=== PATIENT | female | born 1970 | race Caucasian/White ===

== ENCOUNTER 2018-08-18 16:35 | Outpatient (CLI) | payer OTHER, SELFPAY ==
--- NOTE | 2018-08-18 16:30 | DI.RAD_ITS ---
SYMPTOMS/DIAGNOSIS: LOW BACK PAIN, M54.5, BACK SURGERY 2015 LUMBAR SPINE: AP, lateral and bilateral oblique views. There is straightening of the normal lumbar lordosis. No spondylolysis or spondylolisthesis is seen. At L 3 - 4 there is a vacuum disc. There are endplate osteophytes and endplate sclerosis. At L 5 - S 1 there is a vacuum disc present and mild disc space narrowing. No acute fractures or subluxations are seen. There are surgical clips in the right upper quadrant of the abdomen. An intrauterine device is seen in the pelvis. IMPRESSION: Mild degenerative changes in the lumbar spine.
== END 2018-08-18 16:55 ==
PROVIDERS: PCP Physician Assistant Medical; Visit Provider Registered Nurse
DX: M54.5 Low back pain (principal); Z98.890 Other specified postprocedural states; M47.816 Spondylosis without myelopathy or radiculopathy, lumbar region
CPT/HCPCS: 72110

== ENCOUNTER 2018-08-20 12:41 | Emergency (ER) | payer OTHER, SELFPAY ==
[2018-08-20 12:46] VITALS: BP 138/88; PULSE 120; RESP 18; TEMP 36.7; O2SAT 100
[2018-08-20 12:50] VITALS: RESP 120
--- NOTE | 2018-08-20 12:53 | ED.GENADUL_ITS ---
Discharge Plan Disposition Patient Disposition: HOME Condition: Stable Discharge Details Chief Complaint: Nk/Back Pain Clinical Impression: Muscle spasm Primary Care Provider: Yarelis Guardado ED Provider: Beck Thompson Home Meds and New Rx's Prescriptions: New diazepam [Valium] 5 mg tablet 5 mg PO TID-QID PRN (Reason: muscle spasm) Qty: 20 RF: 0 No Action levothyroxine 300 mcg Tablet 300 mcg PO DAILY RF: 0 enalapril maleate 20 mg Tablet 20 mg PO DAILY RF: 0 pantoprazole [Protonix] 20 mg Tablet,Delayed Release (Dr/Ec) 20 mg PO DAILY RF: 0 bupropion HCl [Wellbutrin XL] 300 mg Tablet Extended Release 24 Hr 300 mg PO QAM RF: 0 duloxetine [Cymbalta] 60 mg Capsule,Delayed Release(Dr/Ec) 60 mg PO DAILY RF: 0 Discharge Instructions Instructions: Muscle Spasm (ED) Additional Instructions: You can take 1000mg tylenol and 600mg ibuprofen every 6 hours for pain as needed do not take the valium and flexeril within 3 hours of each other Follow up with your primary care provider within 1-2 weeks if you develop fevers, inability to urinate or severe worsening of pain return to the emergency department Stand Alone Forms: Physical Therapy Referral, Work Release Medical Decision Making 47 yo female who denies chronic medical problems comes in with muscle spasm. She has had a pain in the left lower back for a few days with no known trauma, had lumbar spine xrays taken on 08/18 which showed djd otherwise unremarkble. She has been taking prednisone prescribed by her pcp (50mg daily for 5 days) and also flexeril prn without significnat relief. She has pain in the left buttock/hip area. HAs full rom of the hip without erythema or warmth so doubt septic joint. Her pain seems to be musculoskeletal in nature. Has no midline pain, no saddle anesthesia, no urinary retention and denies ivdu or fevers so doubt sea or cauda equina. Will treat with nsaids and valium and reassess. pt feels mildly better, still no deficits on exam. Will prescribe the muscle relaxer and also Pt referral, return precautions given Differential Diagnosis muscle spasm, sciatica, strain, sprain HPI General Mode of arrival: ambulatory . Date/Time Provider Initiated Documentation: 08/20/18 12:42 . Limitations to Documentation: no limitations . Information obtained by: patient . History of Present Illness 47 year old F presents to the emergency department with the chief complaint of left buttock/low back pain, Patient reports no radiation. Patient started experiencing this day(s) (3) and it has been constant. No relieving factors improve symptom(s), No exacerbating factors reported . Patient notes no other symptoms.. Related Data Home Medications Medication Instructions Recorded Confirmed bupropion HCl [Wellbutrin XL] 300 mg PO QAM 08/20/18 08/20/18 diazepam [Valium] 5 mg PO TID-QID PRN #20 tab 08/20/18 duloxetine [Cymbalta] 60 mg PO DAILY 08/20/18 08/20/18 enalapril maleate 20 mg PO DAILY 08/20/18 08/20/18 levothyroxine 300 mcg PO DAILY 08/20/18 08/20/18 pantoprazole [Protonix] 20 mg PO DAILY 08/20/18 08/20/18 Previous Rx's Medication Instructions Recorded diazepam [Valium] 5 mg PO TID-QID PRN #20 tab 08/20/18 Allergies Allergy/AdvReac Type Severity Reaction Status Date / Time ondansetron [From Zofran] Allergy Severe Anaphylaxsi Unverified 08/20/18 12:51 s citalopram [From Celexa] Allergy Mild Other (See Unverified 08/20/18 12:51 Comment) Review of Systems Review of Systems All systems reviewed & are unremarkable except as noted in HPI and below Constitutional Denies chills, Denies fever(s) and Denies weakness ENT Denies change in voice Cardiovascular Denies chest pain and Denies dyspnea Respiratory Denies cough and Denies dyspnea Gastrointestinal Denies abdominal pain, Denies nausea and Denies vomiting Integumentary/Breasts Denies rash Neurologic Denies weakness Exam Const General: no acute distress Orientation: alert HENMT Head: normal to inspection Ears: external ears normal General nose exam: external nose normal Mouth: moist mucous membranes Eyes General: appearance normal, both eyes and all related structures Neck Neck: normal visual inspection Resp Effort & Inspection: normal respiratory effort and able to speak in complete sentences Cardio Rate: regular rate Skin General skin exam: no rashes or lesions noted Neuro General: alert and oriented x3 Extrem General: normal to inspection Psych Mental Status: mental status grossly normal
[2018-08-20] MEDS: Ketorolac 30 MG/ML VIAL IM (12:57)
[2018-08-20] MEDS: Diazepam 5 MG TAB PO (12:57)
== END 2018-08-20 13:42 | disposition home or self-care (01) ==
PROVIDERS: Emergency Provider Emergency Medicine; PCP Physician Assistant Medical
DX: M62.830 Muscle spasm of back (principal)
CPT/HCPCS: 96372; 99284; 99283; J1885

== ENCOUNTER 2018-08-26 13:56 | Outpatient (CLI) | payer OTHER, SELFPAY ==
--- NOTE | 2018-08-26 13:52 | DI.MRI_ITS ---
SYMPTOMS/DIAGNOSIS: LOW BACK PAIN, M54.5, RIGHT LEG NUMBNESS AND PAIN, S/P SURGERY IN 2015 FOR 2 HERNIATED DISCS MRI OF THE LUMBAR SPINE: Comparison is made with September,. T1, T2 and STIR sagittal and T1 and T2 axial as well as pre and post gadolinium fat-suppressed T1 axial and sagittal sequences were performed. The exam is somewhat limited by the patient's body habitus and motion. The T12-L1 and L1-2 discs appear normal. There is mild bulging of the L2-3 disc, unchanged from the previous exam. At L3-4, there is further loss of disc height and increased circumferential disc bulging when compared with the previous exam. The endplate osteophytes also appear to have increased. There is an area of abnormal density seen on the right side of the thecal sac, inferior to the L3-4 disc suspicious for an inferior disc extrusion. There is significant impression upon the thecal sac. There is mild to moderate neural foraminal narrowing. At L4-5, there is disc bulging eccentric toward the right causing severe right neural foraminal narrowing. There is also moderate left neural foraminal narrowing. There are also facet degenerative changes combining with the disc bulging to produce mild central canal stenosis. At L5- S1, there is evidence of previous surgery. A small left laminectomy defect is seen. There is mild bulging of the disc. There are mild facet degenerative changes. There is left neural foraminal narrowing. The conus medullaris appears intact. The marrow signal is unremarkable other than degenerative endplate signal changes. The aorta is normal in diameter. A right renal cyst is seen. IMPRESSION: 1. Right-sided inferior extrusion of disc material inferior to the L3-4 disc. 2. Right-sided disc bulging and facet degenerative changes at L4-5 cause severe right neural foraminal narrowing, as well as mild central canal stenosis.
[2018-08-26] MEDS: Gadoterate meglumine 20 ML VIAL IVP (14:42)
== END 2018-08-26 14:16 ==
PROVIDERS: PCP Physician Assistant Medical; Visit Provider Registered Nurse
DX: M54.5 Low back pain (principal); M79.604 Pain in right leg; R20.0 Anesthesia of skin; M51.17 Intervertebral disc disorders with radiculopathy, lumbosacral region
CPT/HCPCS: 72158

== ENCOUNTER 2018-11-26 01:13 | Outpatient (CLI) | payer OTHER, SELFPAY ==
--- NOTE | 2018-11-26 16:00 | NS.NUTBLAN_ITS ---
ASSESSMENT: Irene Knowles presents for first nutrition consult in preparation for Bariatric surgery. Irene has omelet, turkey sausage and a scoop of home fries for breakfast; snacks at lunch on cereal and skim milk, animal crackers, addie crackers and peanut butter, or ice cream, and a regular supper of meat, potato, salad. She has soda 2x/month. She dislikes vegetables and likes limited number of fruit. 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 She reports she has just gotten her C-Pap machine. HEIGHT: 65.5 inches WEIGHT: 297.7 BMI: 50.3 INTERVENTION: Discussed options for a less processed lunch/snack but she does not have many options available to her. Discussed documenting her food on the food journal. PLAN: She will return in 1 month for follow up consult to monitor weight, BMI, nutrition and physical activity.
== END 2018-11-26 01:33 ==
PROVIDERS: PCP Physician Assistant Medical; Visit Provider Dietitian, Registered
DX: E66.9 Obesity, unspecified (principal); Z01.818 Encounter for other preprocedural examination; Z71.3 Dietary counseling and surveillance
CPT/HCPCS: 97802

== ENCOUNTER 2018-12-18 02:52 | Outpatient (CLI) | payer OTHER, SELFPAY ==
--- NOTE | 2018-12-18 15:39 | NS.NUTBLAN_ITS ---
DESCRIPTION: Irene Knowles presents for consult for her second nutrition visit for bariatric surgery preparation. Irene has been successful at being in the pool 20 minutes 3-4 times a week. She has increased the variety of fruits and tried to eat more vegetables. She has been eating salads. She has not been skipping meals. SHe has cut out potatoes at breakfast. She has been avoiding sweets. Weight today: 295 Height: 65.5 BMI: 48.4 INTERVENTION: Discussed concerns about bariatric surgery. She believes she can continue the changes she has made. In addition, discussed 'how' she eats. PLAN: Irene will continue in the pool and attempt to increase her time there She will slow down how fast she eats; chew more Document her food for at least 1 week
== END 2018-12-18 03:12 ==
PROVIDERS: PCP Physician Assistant Medical; Visit Provider Dietitian, Registered
DX: E66.01 Morbid (severe) obesity due to excess calories (principal); Z68.45 Body mass index [BMI] 70 or greater, adult; Z01.818 Encounter for other preprocedural examination; Z71.3 Dietary counseling and surveillance
CPT/HCPCS: 97803

== ENCOUNTER 2018-12-18 06:57 | Outpatient (RCR) | payer OTHER, SELFPAY ==
[2018-12-18 07:56] LABS: Abs Immature Grans 0.01 k/cumm (0.0-0.09); Absolute Basophil Count 0.03 k/cumm (0.0-0.2); Absolute Eosinophil Count 0.12 k/cumm (0.0-0.7); Absolute Lymphocyte Count 1.02 k/cumm (1.2-3.4); Absolute Monocyte Count 0.37 k/cumm (0.11-0.7); Basophils % 0.5; Eosinophils % 2.1; HCT 40.2 % (36.0-46.0); HGB 12.5 g/dL (12.0-15.5); Immature Grans % 0.2; Lymphocytes % 17.4; Mean Corp. HGB Concentration 31.1 g/dL (32.0-36.0); Mean Corpuscular Hemoglobin 28.4 pg (27.0-33.0); Mean Corpuscular Volume 91.4 fL (80-95); Mean Platelet Volume 11.7 fL (8.0-11.0); Monocytes % 6.3; Neutrophils % 73.5; Platelet Count 263 x1000/uL (130-400); RBC Distribution Width 14.2 % (11.7-14.6); White Blood Cell Count 5.85 k/cumm (4.4-10.8)
[2018-12-18 08:15] LABS: Hemoglobin A1C 6.1 % (4.5-6.2)
[2018-12-18 08:24] LABS: ALT 27 U/L (12-78); AST 12 U/L (15-37); Albumin 3.4 g/dL (3.4-5.0); Alkaline Phosphatase 97 U/L (46-116); Anion Gap 8.8 mmol/L (3-11); BUN 13 mg/dL (7-18); Bilirubin, Total 0.4 mg/dL (0.2-1.0); CO2 29.2 mmol/L (21.0-32.0); CREATININE 0.72 mg/dL (0.55-1.02); Calcium 8.3 mg/dL (8.5-10.1); Calculated LDL 139 mg/dL; Chloride 104 mmol/L (98-107); Cholesterol 205 mg/dL (50-200); Glucose 116 mg/dL (70-100); HDL Cholesterol 42 mg/dL (40-60); Potassium 3.8 mmol/L (3.5-5.1); Sodium 142 mmol/L (136-145); Total Protein 7.2 g/dL (6.4-8.2); Triglyceride 120 mg/dL (30-150)
== END 2018-12-30 23:59 | disposition home or self-care (01) ==
LOC: INF 06:57
PROVIDERS: PCP Physician Assistant Medical; Visit Provider Physician Assistant Medical
DX: R73.9 Hyperglycemia, unspecified (principal); I10 Essential (primary) hypertension
CPT/HCPCS: 36415; 80053; 80061; 83721; 83036; 84443; 85025

== ENCOUNTER 2019-01-22 13:12 | Outpatient (CLI) | payer OTHER, SELFPAY ==
--- NOTE | 2019-01-22 15:50 | NS.NUTBLAN_ITS ---
DESCRIPTION: Irene presents for nutrition consult for her 3rd nutrition visit in preparation for bariatric surgery. She reports attempting to slow down her eating by putting her fork down between bites and savoring her bites. Also focused on not drinking beverages with her meal. She has increased her fruit, decreased sweets, cereal and portions. She was on vacation for 2 weeks, however, and ate more than she normally does. Irene was physically active for the 2 weeks on vacation, walking and swimming at least 1 hour daily, hwoever since returning she has a back problem and that is limiting her current physical activity. Weight today: 297.8 Height: 65.5 inches BMI 49.6 INTERVENTION: Discussed strategies to increase mindful eating practices by slowing down her food, chewing food more thoroughly, no distracted eating. Discussed barrier to exercise and she feels confident she knows what to do to prevent triggering back issues. She is excited about her surgery and is making good efforts to prepare. MONITORING: Will f/u as she needs.
== END 2019-01-22 13:32 ==
PROVIDERS: PCP Physician Assistant Medical; Visit Provider Dietitian, Registered
DX: E66.2 Morbid (severe) obesity with alveolar hypoventilation (principal); Z68.42 Body mass index [BMI] 45.0-49.9, adult; Z71.3 Dietary counseling and surveillance
CPT/HCPCS: G0270

== ENCOUNTER 2019-01-25 01:15 | Outpatient (CLI) | payer OTHER, SELFPAY ==
--- NOTE | 2019-01-25 15:30 | DI.MAMMO_ITS ---
SYMPTOM/DIAGNOSIS: SCREENING Z12.31 BILATERAL SCREENING MAMMOGRAM: Mammograms were interpreted according to the usual protocol including computer analysis with CAD system, tomosynthesis and C view imaging. Comparison is made with 2017. The breasts are composed of fatty density tissue, breast density category A. No suspicious masses or suspicious microcalcifications are seen. There has been no significant change. IMPRESSION: Category 1, negative mammogram. Yearly screening mammography is recommended. Breast density category A. SA ASSESSMENT OF FINDINGS: Negative. Category 1. Patient will receive a letter notifying them of these results. BI-RAD category A. The breasts are almost entirely fatty.
== END 2019-01-25 01:35 ==
PROVIDERS: PCP Physician Assistant Medical; Visit Provider Physician Assistant Medical
DX: Z12.31 Encounter for screening mammogram for malignant neoplasm of breast (principal)
CPT/HCPCS: 77063; 77067

== ENCOUNTER 2019-03-25 12:42 | Outpatient (RCR) | payer OTHER, SELFPAY ==
[2019-03-25 14:30] LABS: HCT 38.5 % (36.0-46.0); HGB 12.4 g/dL (12.0-15.5)
[2019-03-25 14:45] LABS: Hemoglobin A1C 6.2 % (4.5-6.2)
[2019-03-25 14:54] LABS: Iron 32 ug/dL (50-175); Total Iron Binding Capacity 352 ug/dL (250-450); Transferrin Sat 9 % (15-50)
[2019-03-25 15:26] LABS: ALT 36 U/L (14-59); AST 17 U/L (15-37); Albumin 3.4 g/dL (3.4-5.0); Alkaline Phosphatase 85 U/L (46-116); Anion Gap 8.7 mmol/L (3-11); BUN 20 mg/dL (7-18); Bilirubin, Total 0.3 mg/dL (0.2-1.0); CO2 28.3 mmol/L (21.0-32.0); CREATININE 0.89 mg/dL (0.55-1.02); Calcium 8.8 mg/dL (8.5-10.1); Calculated LDL 86 mg/dL; Chloride 105 mmol/L (98-107); Cholesterol 169 mg/dL (50-200); Ferritin 34 ng/mL (8-388); Glucose 111 mg/dL (70-100); HDL Cholesterol 34 mg/dL (40-60); Magnesium 1.9 mg/dL (1.8-2.4); Potassium 3.4 mmol/L (3.5-5.1); Sodium 142 mmol/L (136-145); TSH 0.33 uIU/mL (0.36-3.74); Triglyceride 247 mg/dL (30-150); Vitamin B12 923 pg/mL (193-986)
[2019-03-25 15:27] LABS: Folate > 20.0 ng/mL (8.6-20.0)
[2019-03-25 15:31] LABS: Vitamin D 25 Total 44.7 ng/ml (30-100)
[2019-03-29 14:00] LABS: Thiamine (Vitamin B1), WB 288 nmol/L (70-180)
== END 2019-04-01 23:59 | disposition home or self-care (01) ==
LOC: INF 12:42
PROVIDERS: PCP Physician Assistant Medical; Visit Provider Surgery
DX: E66.01 Morbid (severe) obesity due to excess calories (principal)
CPT/HCPCS: 36415; 80053; 80061; 82306; 82607; 82728; 82746; 83036; 83540; 83550; 83735; 84425; 84443; 85014; 85018

== ENCOUNTER 2019-08-20 07:26 | Outpatient (RCR) | payer OTHER, SELFPAY ==
[2019-08-20 11:32] LABS: Iron 72 ug/dL (50-170)
[2019-08-20 12:00] LABS: ALT 41 U/L (14-59); AST 23 U/L (15-37); Albumin 3.5 g/dL (3.4-5.0); Alkaline Phosphatase 142 U/L (46-116); Anion Gap 7.3 mmol/L (3-11); BUN 10 mg/dL (7-18); Bilirubin, Total 0.5 mg/dL (0.2-1.0); CO2 29.7 mmol/L (21.0-32.0); CREATININE 0.69 mg/dL (0.55-1.02); Calcium 8.5 mg/dL (8.5-10.1); Calculated LDL 100 mg/dL (<100); Chloride 104 mmol/L (98-107); Cholesterol 153 mg/dL (<200); Ferritin 53 ng/mL (8-252); Folate 11.1 ng/mL (8.6-20.0); GGT 30 U/L (5-55); Glucose 95 mg/dL (74-106); HDL Cholesterol 35 mg/dL (40-60); Potassium 3.6 mmol/L (3.5-5.1); Sodium 141 mmol/L (136-145); TSH 0.02 uIU/mL (0.36-3.74); Total Protein 6.2 g/dL (6.4-8.2); Triglyceride 91 mg/dL (<150); Vitamin B12 1148 pg/mL (193-986)
[2019-08-20 12:09] LABS: Bilirubin, Direct 0.12 mg/dL (0.00-0.20); Uric Acid 4.9 mg/dL (2.6-6.0)
[2019-08-23 10:15] LABS: Prealbumin 14 mg/dL (20-40)
[2019-08-23 12:21] LABS: Parathyroid Hormone,Intact 48 pg/mL (19-88)
[2019-08-23 13:34] LABS: Vitamin D 25 Total 48.8 ng/ml (30-100)
[2019-08-23 23:47] LABS: Free Retinol (Vitamin A) 25.2 mcg/dL (32.5-78.0)
[2019-08-24 12:28] LABS: Methylmalonic Acid 0.14 nmol/mL (<=0.40)
== END 2019-08-31 23:59 | disposition home or self-care (01) ==
LOC: INF 07:26
PROVIDERS: PCP Physician Assistant Medical; Visit Provider Nurse Practitioner Family
DX: Z98.84 Bariatric surgery status (principal)
CPT/HCPCS: 36415; 80053; 80061; 80076; 80186; 82306; 82607; 82728; 82746; 82977; 83540; 83970; 84134; 84425; 84443; 84550; 84590

== ENCOUNTER 2020-03-31 08:21 | Outpatient (RCR) | payer OTHER, SELFPAY ==
[2020-03-31 09:12] LABS: HGB 13.1 g/dL (11.2-15.7)
[2020-03-31 09:29] LABS: Hemoglobin A1C 5.6 % (<5.7)
[2020-03-31 09:50] LABS: ALT 38 U/L (14-59); AST 21 U/L (15-37); Albumin 3.2 g/dL (3.4-5.0); Alkaline Phosphatase 118 U/L (46-116); Anion Gap 5.9 mmol/L (3-11); BUN 14 mg/dL (7-18); Bilirubin, Total 0.4 mg/dL (0.2-1.0); CO2 31.1 mmol/L (21.0-32.0); CREATININE 0.69 mg/dL (0.55-1.02); Calcium 8.3 mg/dL (8.5-10.1); Calculated LDL 91 mg/dL (<100); Chloride 104 mmol/L (98-107); Cholesterol 153 mg/dL (<200); Ferritin 49 ng/mL (8-252); Glucose 91 mg/dL (74-106); HDL Cholesterol 51 mg/dL (40-60); Iron 97 ug/dL (50-170); Potassium 3.1 mmol/L (3.5-5.1); Sodium 141 mmol/L (136-145); TSH 0.01 uIU/mL (0.36-3.74); Total Protein 6.5 g/dL (6.4-8.2); Triglyceride 57 mg/dL (<150); Vitamin B12 1137 pg/mL (193-986)
[2020-03-31 10:18] LABS: Folate > 20.0 ng/mL (8.6-20.0)
[2020-04-03 06:11] LABS: Vitamin D 25 Total 49.9 ng/ml (30-100)
[2020-04-05 21:21] LABS: Thiamine (Vitamin B1), WB 192 nmol/L (70-180)
[2020-04-06 13:03] LABS: Parathyroid Hormone,Intact 43.8 pg/mL (19-88)
== END 2020-04-01 23:59 | disposition home or self-care (01) ==
LOC: INF 08:21
PROVIDERS: PCP Physician Assistant Medical; Visit Provider Nurse Practitioner Family
DX: E83.10 Disorder of iron metabolism, unspecified (principal); Z98.84 Bariatric surgery status; K91.2 Postsurgical malabsorption, not elsewhere classified; E89.0 Postprocedural hypothyroidism
CPT/HCPCS: 36415; 80053; 80061; 82306; 82607; 82728; 82746; 83036; 83540; 83970; 84425; 84443; 85014; 85018

== ENCOUNTER 2020-05-23 13:00 | Outpatient (RCR) | payer OTHER, SELFPAY ==
--- OUTSIDE RECORDS SUMMARY | 2020-05-23 13:02 | XMS_ITS ---
:1970 Author Care Team Providers Name Role Phone RUDY GUARDADO Primary Care Provider [phone] DEYSI HARPER DO Internal Medicine [phone] [facility] OTHER [phone] [facility] OTHER [phone] SURGERY PROG) Allergies Code Code System Name Reaction Severity Status Onset 2556 RxNorm Citalopram ? ? Active ? 71935 RxNorm Zofran Anaphylaxis ? Active ? Medications Name Status Start Date Stop Date ? ? acetaminophen 650 mg/20.3 mL oral solution Completed ? 11/15/2019 Take 20.3 mL every 4 hours by oral route. Advair HFA 230 mcg-21 mcg/actuation aerosol inhaler Completed 06/09/2014 06/23/2014 2 (two) Aerosol: two times daily aluminum-mag hydroxide-simethicone 200 mg-200 mg-20 mg/5 mL oral susp Completed 08/27/2012 08/27/2012 15 Milliliter(s): every six hours, as needed amoxicillin 500 mg capsule Completed 05/19/200905/29 1 Cap: TID Ativan 1 mg tablet Completed 11/20/2014 11/26/2014 1 (one) Tablet Tablet: every eight hours as needed B Complex 1 tablet Completed ? 11/15/2019 Take 2 tablets every day by oral route. bupropion HCl SR 150 mg tablet,12 Completed ? 11/24/2017 hr sustained-release bupropion HCl XL 300 mg 24 hr Active ? No t available tablet, extended release buspirone 30 mg tablet Completed ? 9 2tabs at bedtime neftaly [id number] Active ? No t available cholesterol (bulk) 100 % powder Completed 08/08/2006 08/14/2007 1/2 packet Powder: qd Ciloxan 0.3 % eye drops Completed 09/04/2005 02/26/20 06 2 (two) Drop(s): QD as directed citalopram 40 mg tablet Completed 02/11/2013 02/12/20 13 1 (one) Tablet: daily cyanocobalamin (vit B-12) 1,000 mcg tablet Completed ? 11/15/2019 Take 1 microgram every day by oral route for 90 days. cyclobenzaprine 10 mg tablet Completed ? cyclobenzaprine 5 mg tablet Completed ? 01/2019 Cymbalta Completed ? 06/04/2018 60mg daily Demerol (PF) 75 mg/1.5 mL injection solution Completed 12/200505/09/2006 1 (one) Solution: jeana diazepam 5 mg tablet Completed ? 10/08/2018 Dilaudid 8 mg tablet Completed 11/02/2014 11/14/2014 1 (one) Tablet: every four hours, as needed docusate sodium 100 mg capsule Completed 08/09/2012 0 09/22/2012 2 (two) Capsule: once daily as needed duloxetine 60 mg capsule,delayed Active ? Not available release enalapril maleate 10 mg tablet Completed ? 0 08/18/2018 enalapril maleate 20 mg tablet Completed ? 0 11/15/2019 enalapril maleate 5 mg tablet Completed ? estradiol 0.025 mg/24 hr Completed ? 018 semiweekly transdermal patch Flomax 0.4 mg capsule Completed 02/21/2012 03/02/2012 1 (one) Capsule: daily Flovent HFA 220 mcg/actuation aerosol inhaler Completed 12/24/2012 2 (two) Puff(s): Twice daily Flovent HFA 44 mcg/actuation aerosol inhaler Completed 09/201208/04/2012 2 (two) Aerosol: Twice daily gabapentin 100 mg capsule Completed ? 2018 gabapentin 300 mg capsule Completed ? 2018 Guaifenesin AC 10 mg-100 mg/5 mL oral liquid Completed 07/04/2016 5-10 ml Syrup: every 4 to 6 hours as needed for cough hydrocodone 10 mg-acetaminophen 325 mg tablet Completed 10/20/2014 1 (one) Tablet: every four hours, as needed hydromorphone 2 mg tablet Completed ? 2018 hydromorphone 4 mg tablet Completed ? 2018 hydroxyzine HCl 25 mg tablet Completed 12/19/2009 1 (one) Tablet: at bedtime ibuprofen 400 mg tablet Completed 08/09/2012 09/23/19 13 1 Tablet: every four hours, as needed ibuprofen 800 mg tablet Completed ? 11/25/19 18 ipratropium bromide 42 mcg (0.06 %) nasal spray Completed 09/04/2012 09/22/2012 2 (two) spray(s): Each nostril 3-4 times daily Levaquin 750 mg tablet Completed 08/09/2012 3 1 (one) Tablet: daily levothyroxine 112 mcg tablet Completed 09/22/2012 2 (two) Tablet: daily levothyroxine 125 mcg tablet Active ? Not available levothyroxine 300 mcg tablet Completed ? Lexapro 20 mg tablet Completed 02/05/2008 03/15/2009 1 1/2 tabs Tablet: Daily loperamide 2 mg tablet Completed 03/06/2007 9 1 (one) Tablet: PRN meloxicam 7.5 mg tablet Active ? Not avai lable metoprolol tartrate 50 mg tablet Completed 11/19/2014 03/02/2015 1 (one) Tablet Tablet: four times daily Mirena 20 mcg/24 hours (6 yrs) 52 mg intrauterine device Active ? Not available Take by intrauterine route. Narcan 4 mg/actuation nasal spray Completed ? 09/25/2018 Nasonex 50 mcg/actuation [place] Completed 06/29/2014 0 07/29/2014 1 (one) Suspension Suspension: bid - twice daily oxycodone 5 mg/5 mL oral solution Completed ? 05/11/2019 Take 5 mL every 4 hours by oral route. Pain Relief (acetaminophen) 650 mg tablet,extended release Compl eted 08/27/2012 08/27/2012 1 Tablet ER: every four hours, as needed pantoprazole 20 mg tablet,delayed Completed ? 05/17/2020 release Percocet 5 mg-325 mg tablet Completed 03/02/201206/2011 1 to 2 Tablet: Every 6 hours as needed Phenergan 25 mg/mL injection Completed 05/09/200612/2005 solution prednisone 10 mg tablet Completed 07/20/2015 08/05/19 16 1 (one) Tablet: See comments prednisone 50 mg tablet Completed ? 08/25/19 19 Prilosec OTC 20 mg tablet,delayed release Completed 200703/15/2009 1 (one) Tab DR: Daily ProAir HFA Completed ? 06/04/2018 2puffs Q4-6hrs PRN prochlorperazine 5 mg tablet Completed ? Take 1 tablet every 6 hours by oral route. prochlorperazine maleate 5 mg Completed ? tablet promethazine 25 mg tablet Completed ? 2017 Protonix Completed ? 06/04/2018 20mg daily Proventil HFA 90 mcg/actuation Active ? N ot available aerosol inhaler Provera 10 mg tablet Completed 09/22/2007 03/15/2009 1 Tablet: Daily Prozac 20 mg capsule Completed 07/09/2004 09/06/2005 1 Cap: QD ranitidine 150 mg capsule Completed 12/26/20112011 1 (one) Capsule: daily, as needed sennosides 8.6 mg tablet Completed 08/27/2012 013 2 (two) Tablet: once daily as needed Symbicort 160 mcg-4.5 mcg/actuation HFA aerosol inhaler Complete d 06/29/2014 03/02/2015 2 (two) puff puff: two times daily Synthroid Completed ? 06/04/2018 300mcg Synthroid 200 mcg tablet Completed 04/27/2013 013 1 Tablet: daily levothyroxine 25 mcg tablet Active ? Not available Synthroid 75 mcg tablet Completed 04/27/2013 04/27/20 13 1 Tablet: daily Tamiflu 75 mg capsule Completed 05/27/2014 06/01/2014 1 (one) Capsule: every 12 hours tobramycin 0.3 % eye drops Completed ? 12/14 trazodone 100 mg tablet Completed 08/08/2006 08/14/19 08 1 (one) Tablet: at bedtime triamcinolone acetonide 0.1 % topical cream Completed 08/0108/27/2012 1 (one) Cream: Twice daily venlafaxine ER 75 mg capsule,extended release 24 hr Completed 03/03/2013 03/03/2013 1 Capsule ER 24HR: daily Vitamin D3 50 mcg (2,000 unit) capsule Completed ? 11/15/2019 take 2 capsule daily Vitron-C Completed ? 11/15/2019 daily Wellbutrin XL Completed ? 06/04/2018 300mg at bedtime Zithromax Z-Chip 250 mg tablet Completed 07/20/2015 1 Tablet: See comments Zmax 2 gram/60 mL oral suspension,extended release Completed 07/04/2005 09/06/2005 1 For Suspension: QD zolpidem ER 6.25 mg tablet,extended release,multiphase Completed 11/02/2014 03/02/2015 1 (one) Tablet ER: at bedtime Notes: ProCare adult multivitami n with Iron daily, Problems Name Status Onset Date Source ? Lumbosacral Radiculitis Active 09/27/2018 ? History of Bariatric Surgical Procedure Active 05/11/20 19 ? Laboratory Test Result Abnormal Active 05/17/2020 ? Malignant Tumor of Thyroid Gland Active ? History Postoperative Hypothyroidism Active ? His tory Hypothyroidism Unknown ? History Morbid Obesity Active ? History Recurrent Major Depressive Episodes, Active ? History Moderate Depressive Disorder Active ? History Hypersomnia Active ? History Carpal Tunnel Syndrome Active ? History Hypertensive Disorder Active ? History Tracheobronchitis Active ? History Asthma Active ? History Exacerbation of Asthma Active ? History Gastroesophageal Reflux Disease Active ? History Prurigo Nodularis Active ? History Lack of Energy Active ? History Urinary Incontinence Active ? History Nocturia Active ? History Prediabetes Active ? History Elevated Blood-pressure Reading without Active ? History Diagnosis of Hypertension Counseling Active ? History Adult Health Examination Active ? History Respiratory Finding Active ? History Strain of Muscle at Thorax Level Unknown ? History Strain of Tendon at Thorax Level Unknown ? History Finding of Female Genital Functions Unknown ? History Procedures Date Name Performed by ? 04/27/2019 Gastric Bypass for Obesity Information n ot available 10/31/2009 Tubal Ligation Information not avai lable 06/02/2005 Cholecystectomy Information not avai lable Notes: Lap Cholecystectomy 06/02/1993 Appendectomy Information not avai lable ? Tonsillectomy Information not avai lable 08/18/2018 XR, Lumbosacral Spine, 2 or 3 View Xray [facility] [address] [place], [place] [address] (Work Place) 08/24/2018 MRI, Lumbar Spine, W/wo Contrast Xray Nv rh [address] [place], [place] [address] (Work Place) 12/14/2018 MAMMO, Screening, Tomosynthesis, [facility] Radiology (Internal) Bilateral [address] [place] [address] (Work Place) 05/17/2020 MAMMO, Screening, Tomosynthesis, Xray Nv rh Bilateral [address] [facility], [place] [address] (Work Place) 05/17/2020 MAMMO, Screening, Tomosynthesis, [facility] Radiology (Internal) Bilateral [address] [place] [address] (Work Place) Results Lab Results Date Name Specimen Result Interpretation Description Value Range Status Address ? 06/15/2018 Rapid Strep ? Strep negative ? ? P_nc Primary Group a, Care Throat [place]: [address], [place] 08/14/2017 Neutrophil BLD ? Anc-manual 9.89 ? Rajni l [facility] Count, 10*3/uL Hospital Lab Absolute (Interna l): [address] (Anc), [address] Blood [place] 08/14/2017 Differentia BLD High Polys 87 % 40-75 % Final [facility] l, Manual, Hospit al Lab Blood (Internal) : [address] ? ? BLD ? Bands 0 % 0-5 % Final [facility] L ab (Internal) : [address] ? ? BLD Low Lymphs 8 % 20-50 % Final [facility] L ab (Internal) : [address] ? ? BLD ? [place] 3 % 2-10 % Final [facility] ab (Internal) : [address] ? ? BLD ? Eos 2 % 0-6 % Final [facility] ab (Internal) : [address] ? ? BLD ? Baso 0 % 0-1 % Final [facility] ab (Internal) : [address] ? ? BLD ? Atyp Lymph 0 % ? Final [facility] L ab (Internal) : [address] ? ? BLD ? Plts, Est. adequate adequate Final [facility] L ab (Internal) : [address] ? ? BLD ? RBC normal normal Final [facility] Lab (Internal) : [address] 08/14/2017 CMP, Serum S High g/r 165 mg/dL 74-106 Final [facility] or Plasma mg/dL Hospita l Lab (Internal) : [address] ? ? S High Bun 20 mg/dL 7-17 Final [facility] mg/dL Hospital L ab (Internal) : [address] ? ? S ? Crea 0.70 0.52-1.0 Final [facility] mg/dL 4 mg/dL Hospital Lab (Internal) : [address] ? ? S ? Ca 9.0 mg/dL 8.4-10.2 Final [facility] mg/dL Hospital L ab (Internal) : [address] ? ? S ? Na 139 137-145 Final [facility] ntry mmol/L mmol/L Hospital L ab (Internal) : [address] ? ? S ? K 3.5 3.5-5.1 Final [facility] mmol/L mmol/L Hospital L ab (Internal) : [address] ? ? S ? Cl 100 98-107 Final [facility] mmol/L mmol/L Hospital L ab (Internal) : [address] ? ? S ? Tco2 27.0 22.0-30. Final [facility] mmol/L 0 mmol/L Hospital Lab (Internal) : [address] ? ? S ? Tp 7.3 g/dL 6.3-8.2 Final [facility] g/dL Hospital L ab (Internal) : [address] ? ? S ? Alb 4.3 g/dL 3.5-5.0 Final [facility] g/dL Hospital L ab (Internal) : [address] ? ? S ? Tbil 0.6 mg/dL 0.2-1.3 Final [facility] mg/dL Hospital L ab (Internal) : [address] ? ? S ? Alp 96 U/L 50-136 Final [facility] try U/L Hospital L ab (Internal) : [address] ? ? S ? Alt (Sgpt) 39 U/L 9-52 U/L Final [facility] Hospital L ab (Internal) : [address] ? ? S ? Ast (Sgot) 23 U/L 14-36 Final [facility] U/L Hospital L ab (Internal) : [address] 08/14/2017 CBC W/ Auto BLD High Wbc 11.4 5.0-10.0 Final [facility] Diff 10*3/uL 10*3/uL Hospital Lab (Internal) : [address] ? ? BLD ? Rbc 4.83 4.10-5.3 Final [facility] untry 10*6/uL 0 Hospital Lab 10*6/uL (Internal ): [address] ? ? BLD ? Hgb 13.5 g/dL 12.0-16. Final [facility] 0 g/dL Hospital L ab (Internal) : [address] ? ? BLD ? Hct 42.1 % 37.0-47. Final [facility] untry 0 % Hospital L ab (Internal) : [address] ? ? BLD ? Mcv 87.2 fL 80.0-96. Final [facility] ountry 0 fL Hospital L ab (Internal) : [address] ? ? BLD ? Mch 28.0 pg 26.0-32. Final [facility] ountry 0 pg Hospital L ab (Internal) : [address] ? ? BLD ? Mchc 32.1 g/dL 31.0-35. Final [facility] 0 g/dL Hospital L ab (Internal) : [address] ? ? BLD High Rdw 14.7 % 11.5-14. Final [facility] untry 5 % Hospital L ab (Internal) : [address] ? ? BLD ? Plt 248 130-450 Final [facility] ntry 10*3/uL 10*3/uL Hospital Lab (Internal) : [address] 08/14/2017 Urinalysis, UR ? UA-color yellow pale Final [facility] Dipstick, yellow Hospita l Lab Reflex (Internal) : [address] ? ? UR ? UA-appear clear clear Final [facility] (Internal) : [address] ? ? UR ? UA-spec 1.015 1.003-1. Final [facility] Grav 035 Hospital [facility] (Internal) : [address] ? ? UR ? UA-pH 7.5 [pH] 4.6-8.0 Final [facility] ountry [pH] [facility] (Internal) : [address] ? ? UR ? UA-leuk Est negative negative Final [facility] (Internal) : [address] ? ? UR ? UA-nitrite negative negative Final [facility] (Internal) : [address] ? ? UR ? UA-prot negative negative Final [facility] (Internal) : [address] ? ? UR ? UA-gluc negative negative Final [facility] (Internal) : [address] ? ? UR ? UA-ketone negative negative Final No [facility] (Internal) : [address] ? ? UR ? UA-urobil normal normal Final [facility] (Internal) : [address] ? ? UR ? UA-bili negative negative Final [facility] (Internal) : [address] ? ? UR ? UA-blood negative negative Final [facility] (Internal) : [address] 04/08/2017 Pathology TISS ? Report results ? Final [facility] Study below [facility] (Internal) : [address] 01/22/2017 Pap Test, MISC ? Hpv see ? Final [facility] Thinprep, report Hospita l Lab Cervical (Interna l): [address] ? ? MISC ? Pap see ? Final [facility] report Hospital [facility] (Internal) : [address] ? ? MISC ? Report (added) ? Correct [facility] ountry results ed Hospital Lab below (Internal) : [address] 01/22/2017 TSH, Serum S Low Tsh 0.38 0.47-4.6 Final [place] [facility] Plasma u[IU]/mL 8 Hospi [place]ella Lab u[IU]/mL (Interna l): [address] ? Urinalysis, ? Color Yellow ? ? P_nc Primary Dipstick, Care Reflex [place]: Micro [address], [place] ? ? ? Appearance Clear ? ? P_nc Primary Care [place]: [address], [place] ? ? ? Glucose Normal ? ? P_nc [facility] Care [place]: [address], [place] ? ? ? Bilirubin Negative ? ? P_nc Primary Care [place]: [address], [place] ? ? ? Ketones Negative ? ? P_nc P rimary Care [place]: [address], [place] ? ? ? Specific 1.025 ? ? P_nc Pr imary [place] Care [place]: [address], [place] ? ? ? Blood Moderate ? ? P_nc [facility] Care [place]: [address], [place] ? ? ? Ph 6.0 ? ? P_nc Prima ry Care [place]: [address], [place] ? ? ? Protein Negative ? ? P_nc P rimary Care [place]: [address], [place] ? ? ? Urobilinoge 0.2 ? ? P_nc Primary n Care [place]: [address], [place] ? ? ? Nitrite negative ? ? P_nc P rimary Care [place]: [address], [place] ? ? ? Leukocyte Negative ? ? P_nc Primary Esterase Care [place]: [address], [place] ? Glucose, ? Blood 123 ? ? P_nc [facility] Fingerstick Glucose: Car e , Blood mg/dl [place]: [address], [place] ? Urinalysis, ? Color Yellow ? ? P_nc Primary Dipstick, Care Reflex [place]: Micro [address], [place] ? ? ? Appearance Clear ? ? P_nc Primary Care [place]: [address], [place] ? ? ? Glucose Normal ? ? P_nc [place] [facility] [place]: [address], [place] ? ? ? Bilirubin Negative ? ? P_nc Primary Care [place]: [address], [place] ? ? ? Ketones Negative ? ? P_nc P rimary Care [place]: [address], [place] ? ? ? Specific 1.010 ? ? P_nc Pr imary [place] Care [place]: [address], [place] ? ? ? Blood Small ? ? P_nc Prima ry Care [place]: [address], [place] ? ? ? Ph 6.5 ? ? P_nc Prima ry Care [place] e[place]: [address], [place] ? ? ? Protein Negative ? ? P_nc P rimary Care [place] e[place]: [address], [place] ? ? ? Urobilinoge 0.2 ? ? P_nc Primary n Care [place]l e[place]: [address], [place] ? ? ? Nitrite negative ? ? P_nc P rimary Care [place]: [address], [place] ? ? ? Leukocyte Negative ? ? P_nc Primary Esterase Care [place]: [address], [place] Past Encounters 05/17/2020 Adult Health Examination; Screening Mamm ography; Laboratory Test Result Abnormal; Hot Sweats; Hypothyroidism Rudy Guardado PA-C: [address] [place] [address], Ph. 11/15/2019 Recurrent Major Depressive Episodes, Mod erate Rudy Guardado PA-C: [address] [place] [address], Ph. 05/11/2019 History of Bariatric Surgical Procedure; Malignant Tumor of Thyroid Gland Rudy Guardado PA-C: [address] [place] [address], Ph. 02/22/2019 Obstructive Sleep Apnea Syndrome; Hypers omnia; Decreased Vitamin D; Fatigue; Joint Pain Mikael Padron MD, Board Certified Sleep Ph ysician: [address] [place] [address] [address], [place] [address], Ph. 12/21/2018 Obstructive Sleep Apnea Syndrome; Hypers omnia Mikael Padron MD, Board Certified Sleep Ph ysician: [address] [place] [address] [address], [place] [address], Ph. 12/14/2018 Adult Health Examination; Screening Mamm ography; Gastroesophageal Reflux Disease; Hyperglycemia; Hypertensive Disorder; Prediabetes; Lack of Energy; Olecranon Bursitis SHO TijerinaC: [address] [place] [address], Ph. Social History Tobacco Smoking Status Former Smoker Notes: 18, 1/2 ppd. Quit 1999 Vaccine List Vaccine Type Hep B, adult influenza, injectable, quadrivalent 02/17/2018?0.5 mL 03/02/2020 influenza, seasonal, injectable 03/02/2010 02/15/2011 03/05/2013 05/02/2015 03/13/2016?0.5 mL influenza, seasonal, injectable, preserv ative free 03/16/2006 06/02/2008 03/12/2012 03/02/2014 03/24/2017?0.5 mL MMR pneumococcal polysaccharide PPV23 03/16/2006 rubella Tdap 06/09/2006 01/22/2017?0.5 mL varicella Plan of Care Patient Instructions Your sleep study shows Moderate Obs tructive Sleep Apnea. CPAP is working very well, reducing your apneas from 28 times per hour down to 2.8 times per hour on average. We will continue the same setting, auto cpap 7 to [id number]. You like the current mask Meganalejandra Reich Large. I also sent a message to [employer] to tell them to get you the right mask but you can call them to follow up on this. We will check your labs at [facility], Vit D, Vit B12 and ferritin. For now, continue the supplements, as these may also be helping you have more energy. Vitamin D3 4000 iu daily, vitamin B12 1000mcg daily an d vitamin B Complex 2 tablets daily. I o ffered to check labs but due to possible cost, we decided to try empirically supplementing and monitor your energy levels. mask liner to consider: [email or web address] Book to consider reading on intermittent fasting: Obesity code by Dr Cody Robb Follow up in 3 months. Call sooner w/ an y questions or concerns. Your sleep study shows Moderate Obs tructive Sleep Apnea. I mask refitted you to Megan View large size full face mask. You were using AirFit F20 medium but it was constricting your cheeks and nose. If you still do not feel this is the right mask, please call [facility] and request a mask refit. 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 You are doing very well with usage upon starting your cpap machine. You are sleeping better, not waking up as much, but you still feel tired upon waking and during the day. We are increasing your pressures both fo r comfort and possibly more effective. I also turned on the FLEX feature and you felt this was more comfortable, it is designed to give some release when you br eath out on the mask. You can go into th e my settings menu and turn the FLEX down to 1 or 2. We will also empirically start vitamin D 3 4000 iu daily, vitamin B12 1000mcg daily and vitamin B Complex 2 tablets daily. I offered to check labs but due to possible cost, we decided to try empirically supplementing and monitor your energy le vels. Reminders Provider Appointments None recorded. ? ? Lab None recorded. ? ? Referral None recorded. ? ? Procedures None recorded. ? ? Surgeries None recorded. ? ? Imaging None recorded. ? ? Vitals 05/17/2020 10:20AM CPE 40 Height Weight BMI Blood Pressure 163.83 cm 87.77 kg 32.7 kg/m2 120/84 mm[Hg] 11/15/2019 02:20PM Follow Up 20 Height Weight BMI Blood Pressure 163.83 cm 95.71 kg 35.7 kg/m2 130/80 mm[Hg] 05/11/2019 03:00PM Follow Up 40 Height Weight BMI Blood Pressure 163.83 cm 127.54 kg 47.5 kg/m2 120/70 mm[Hg] 02/22/2019 01:30PM Office 30 Height Weight BMI Blood Pressure 163.83 cm 137.44 kg 51.2 kg/m2 118/68 mm[Hg] 12/21/2018 01:45PM Office 30 Height Weight BMI Blood Pressure 163.83 cm 133.81 kg 49.9 kg/m2 130/60 mm[Hg] 12/14/2018 09:00AM CPE 40 Height Weight BMI Blood Pressure 163.83 cm 132 kg 49.2 kg/m2 140/90 mm[Hg] 10/20/2018 01:00PM Office 30 Height Weight BMI Blood Pressure 163.83 cm 132.45 kg 49.3 kg/m2 137/68 mm[Hg] 10/08/2018 04:00PM Follow Up 20 Height Weight BMI Blood Pressure 163.83 cm 132.45 kg 49.3 kg/m2 120/80 mm[Hg] 09/25/2018 09:40AM Follow Up 20 Height Blood Pressure 163.83 cm 138/88 mm[Hg] 09/16/2018 08:00AM Follow Up 20 Height Weight BMI Blood Pressure 163.83 cm 136.53 kg 50.9 kg/m2 152/84 mm[Hg] 09/04/2018 10:20AM Follow Up 20 Height 163.83 cm 08/24/2018 01:00PM Follow Up 20 Height Weight BMI Blood Pressure 163.83 cm 136.53 kg 50.9 kg/m2 156/96 mm[Hg] 08/18/2018 09:40AM Acute 20 Height Weight BMI Blood Pressure 163.83 cm 132 kg 49.2 kg/m2 140/90 mm[Hg] 06/04/2018 08:40AM Follow Up 20 Height Weight BMI Blood Pressure 163.83 cm 133.81 kg 49.9 kg/m2 130/90 mm[Hg] 12/01/2017 03:30PM Follow Up 30 Height Weight BMI Blood Pressure 163.83 cm 131.09 kg 48.8 kg/m2 120/80 mm[Hg] 11/25/2017 02:00PM Office 15 Height Weight BMI Blood Pressure 163.83 cm 131.09 kg 48.8 kg/m2 130/80 mm[Hg] 09/04/2017 Weight 135.17 kg 09/04/2017 Height Blood Pressure 163.83 cm 124/68 mm[Hg] 08/19/2017 Blood Pressure 130/90 mm[Hg] 07/16/2017 Height Weight Blood Pressure 170.18 cm 135.17 kg 130/90 mm[Hg] 03/19/2017 Height Blood Pressure 165.1 cm 140/90 mm[Hg] 01/22/2017 Height Weight Blood Pressure 165.1 cm 141.07 kg 150/100 mm[Hg] 07/04/2016 Height Blood Pressure 165.1 cm 134/100 mm[Hg] 07/20/2015 Height Weight Blood Pressure 165.1 cm 135.17 kg 136/96 mm[Hg] 03/02/2015 Height Blood Pressure 165.1 cm 146/100 mm[Hg] 03/02/2015 Weight 134.26 kg 11/24/2014 Height Blood Pressure 165.1 cm 116/88 mm[Hg] 11/24/2014 Weight 124.28 kg 11/02/2014 Height Weight Blood Pressure 165.1 cm 131.54 kg 118/74 mm[Hg] 10/20/2014 Height Weight Blood Pressure 165.1 cm 133.36 kg 136/80 mm[Hg] 09/27/2014 Height Weight Blood Pressure 165.1 cm 133.63 kg 162/84 mm[Hg] 09/14/2014 Weight 133.22 kg 09/14/2014 Height Blood Pressure 165.1 cm 156/98 mm[Hg] 07/21/2014 Height Weight Blood Pressure 165.1 cm 129.73 kg 110/84 mm[Hg] 07/07/2014 Height Weight Blood Pressure 165.1 cm 129.73 kg 124/70 mm[Hg] 06/29/2014 Weight 131.54 kg 06/29/2014 Height Blood Pressure 165.1 cm 128/80 mm[Hg] 06/09/2014 Height Weight Blood Pressure 165.1 cm 131.54 kg 128/90 mm[Hg] 03/10/2014 Weight 131.09 kg 03/10/2014 Blood Pressure 140/92 mm[Hg] 10/05/2013 Weight Blood Pressure 131.31 kg 112/80 mm[Hg] 09/17/2013 Height Weight Blood Pressure 165.1 cm 134.72 kg 126/80 mm[Hg] 09/02/2013 Height Weight Blood Pressure 165.1 cm 134.72 kg 146/94 mm[Hg] 08/12/2013 Height Weight Blood Pressure 165.1 cm 134.72 kg 122/78 mm[Hg] 07/06/2013 Weight Blood Pressure 134.72 kg 132/90 mm[Hg] 05/31/2013 Height Weight Blood Pressure 165.1 cm 135.44 kg 122/84 mm[Hg] 05/11/2013 Height Weight Blood Pressure 165.1 cm 135.4 kg 144/88 mm[Hg] 04/27/2013 Weight Blood Pressure 134.4 kg 140/88 mm[Hg] 03/03/2013 Blood Pressure 144/90 mm[Hg] 02/18/2013 Height Weight Blood Pressure 165.1 cm 133.31 kg 142/100 mm[Hg] 02/11/2013 Weight 133.31 kg 02/11/2013 Height Blood Pressure 165.1 cm 126/88 mm[Hg] 12/24/2012 Height Blood Pressure 165.1 cm 130/90 mm[Hg] 12/24/2012 Weight 131.41 kg 09/22/2012 Weight Blood Pressure 131.95 kg 128/82 mm[Hg] 09/04/2012 Blood Pressure 108/70 mm[Hg] 09/04/2012 Weight 131.95 kg 08/27/2012 Weight 131.95 kg 08/18/2012 Weight Blood Pressure 130.77 kg 128/86 mm[Hg] 08/04/2012 Weight 133.08 kg 08/04/2012 Blood Pressure (1) 152/92 mm[Hg] (2) 142/94 mm[Hg] 03/12/2012 Height Weight Blood Pressure 165.1 cm 133.81 kg 142/86 mm[Hg] 03/02/2012 Weight Blood Pressure 133.27 kg 144/84 mm[Hg] 01/28/2012 Weight 131 kg 01/28/2012 Height Blood Pressure 165.1 cm 132/88 mm[Hg] 12/26/2011 Height Weight Blood Pressure 163.83 cm 129.64 kg 144/84 mm[Hg] 11/07/2011 Weight Blood Pressure 130.18 kg (1) 150/100 mm[Hg] (2) 154/100 mm[Hg] 07/29/2011 Weight 127.91 kg 07/29/2011 Height Blood Pressure 163.83 cm 138/88 mm[Hg] 04/02/2011 Height Weight Blood Pressure 165.1 cm 124.28 kg 120/80 mm[Hg] 02/27/2011 Height Weight Blood Pressure 165.1 cm 124.28 kg 138/80 mm[Hg] 02/21/2011 Weight 123.79 kg 02/21/2011 Blood Pressure 130/72 mm[Hg] 12/13/2010 Weight Blood Pressure 122.47 kg 132/72 mm[Hg] 06/14/2010 Height Weight Blood Pressure 165.1 cm 123.83 kg 126/80 mm[Hg] 05/11/2010 Height Weight Blood Pressure 165.1 cm 123.92 kg 118/82 mm[Hg] 12/19/2009 Blood Pressure 134/86 mm[Hg] 12/07/2009 Weight Blood Pressure 126.1 kg 126/84 mm[Hg] 07/10/2009 Blood Pressure 124/86 mm[Hg] 05/19/2009 Blood Pressure 118/74 mm[Hg] 03/15/2009 Height Weight Blood Pressure 163.83 cm 122.92 kg 116/80 mm[Hg] 09/22/2007 Height Weight Blood Pressure 165.1 cm 130.63 kg 128/80 mm[Hg] 08/24/2007 Blood Pressure 128/88 mm[Hg] 08/24/2007 Weight 131.09 kg 08/14/2007 Height Weight 165.1 cm 128.59 kg 03/06/2007 Blood Pressure 112/84 mm[Hg] 01/19/2007 Blood Pressure 130/82 mm[Hg] 01/19/2007 Weight 119.29 kg 09/08/2006 Height Weight Blood Pressure 165.1 cm 122.47 kg 140/86 mm[Hg] 08/08/2006 Blood Pressure 124/84 mm[Hg] 06/09/2006 Height Weight Blood Pressure 1664.21 cm 117.93 kg 122/80 mm[Hg] 05/30/2006 Blood Pressure 128/84 mm[Hg] 05/21/2006 Weight Blood Pressure 117.93 kg 124/90 mm[Hg] 05/16/2006 Blood Pressure 140/90 mm[Hg] 05/09/2006 Blood Pressure 140/90 mm[Hg] 03/14/2006 Weight Blood Pressure 121.56 kg 152/96 mm[Hg] 02/25/2006 Blood Pressure 126/90 mm[Hg] 09/06/2005 Height Weight Blood Pressure 165.1 cm 118.84 kg 138/68 mm[Hg] 07/04/2005 Blood Pressure 128/76 mm[Hg] 11/05/2004 Weight Blood Pressure 33.57 kg 118/96 mm[Hg] 10/09/2004 Weight Blood Pressure 116.57 kg 128/76 mm[Hg] 09/04/2004 Weight 116.57 kg 07/09/2004 Blood Pressure 120/74 mm[Hg] 04/17/2004 Blood Pressure 112/68 mm[Hg]
[2020-05-23 14:16] LABS: ALT 45 U/L (14-59); AST 22 U/L (15-37); Albumin 3.7 g/dL (3.4-5.0); Alkaline Phosphatase 114 U/L (46-116); Anion Gap 6.4 mmol/L (3-11); BUN 15 mg/dL (7-18); Bilirubin, Total 0.4 mg/dL (0.2-1.0); CO2 31.6 mmol/L (21.0-32.0); CREATININE 0.78 mg/dL (0.55-1.02); Calcium 8.6 mg/dL (8.5-10.1); Chloride 105 mmol/L (98-107); FREE T4 1.11 ng/dL (0.76-1.46); Glucose 103 mg/dL (74-106); Potassium 3.3 mmol/L (3.5-5.1); Sodium 143 mmol/L (136-145); TSH 0.41 uIU/mL (0.36-3.74); Total Protein 6.9 g/dL (6.4-8.2)
== END 2020-06-01 23:59 | disposition home or self-care (01) ==
LOC: INF 13:00
PROVIDERS: PCP Physician Assistant Medical; Visit Provider Physician Assistant Medical
DX: Z00.00 Encounter for general adult medical examination without abnormal findings (principal); Z12.31 Encounter for screening mammogram for malignant neoplasm of breast; R89.9 Unspecified abnormal finding in specimens from other organs, systems and tissues; R61 Generalized hyperhidrosis; E03.9 Hypothyroidism, unspecified
CPT/HCPCS: 80053; 84439; 84443

== ENCOUNTER 2020-09-07 12:00 | Outpatient (RCR) | payer OTHER, SELFPAY ==
[2020-09-07 14:50] LABS: ALT 60 U/L (14-59); AST 30 U/L (15-37); Albumin 3.5 g/dL (3.4-5.0); Alkaline Phosphatase 115 U/L (46-116); Anion Gap 1.3 mmol/L (3-11); BUN 14 mg/dL (7-18); Bilirubin, Total 0.4 mg/dL (0.2-1.0); CO2 33.7 mmol/L (21.0-32.0); CREATININE 0.7 mg/dL (0.55-1.02); Calcium 8.8 mg/dL (8.5-10.1); Chloride 105 mmol/L (98-107); FREE T4 1.05 ng/dL (0.76-1.46); Glucose 94 mg/dL (74-106); Potassium 3.6 mmol/L (3.5-5.1); Sodium 140 mmol/L (136-145); TSH 1.63 uIU/mL (0.36-3.74); Total Protein 6.6 g/dL (6.4-8.2)
== END 2020-09-29 23:59 | disposition home or self-care (01) ==
LOC: INF 12:00
PROVIDERS: PCP Physician Assistant Medical; Visit Provider Physician Assistant Medical
DX: E03.9 Hypothyroidism, unspecified (principal); Z00.00 Encounter for general adult medical examination without abnormal findings; R89.9 Unspecified abnormal finding in specimens from other organs, systems and tissues
CPT/HCPCS: 36415; 80053; 84439; 84443

== ENCOUNTER 2020-10-22 07:44 | Outpatient (REF) | payer SELFPAY ==
[2020-10-22 20:34] LABS: COVID-19 RT-PCR UVMMC Result Negative (Negative)
== END 2020-10-22 11:25 ==
LOC: ER 07:44
PROVIDERS: Nurse Practitioner Family; PCP Physician Assistant Medical
DX: R69 Illness, unspecified (principal)
CPT/HCPCS: U0003

== ENCOUNTER 2021-04-11 12:17 | Outpatient (RCR) | payer OTHER, SELFPAY ==
[2021-04-11 14:13] LABS: FREE T4 0.93 ng/dL (0.76-1.46)
[2021-04-12 12:16] LABS: Thyroglobulin Antibody <1.8 IU/mL (<1.8); Thyroglobulin Tumor Marker 0.2 ng/mL
== END 2021-05-01 23:59 | disposition home or self-care (01) ==
LOC: INF 12:17
PROVIDERS: PCP Physician Assistant Medical; Visit Provider Physician Assistant Medical
DX: Z85.850 Personal history of malignant neoplasm of thyroid
CPT/HCPCS: 36415; 84432; 84439; 84443; 86800

== ENCOUNTER 2022-04-01 16:00 | Outpatient (REF) | payer OTHER, SELFPAY ==
--- NOTE | 2022-04-01 15:10 | PAPFT_PTH ---
PATIENT: Irene Knowles LOC: [facility] [place] U#:[id number] AGE/SX: 51/F ROOM: RE04/01/[address]: Alexa Thompson NP : 1970 BED: DIS: 04/01/2022 SPEC #: [id number] RECD: 04/01/22 16:29 STATUS: INDIRA REQ #: [id number] KRISTIN: 04/01/22 15:[address]: Alexa Thompson NP DEPT: [facility] Cytology RECD BY: Laura Sanches ENTERED: 04/01/22 16:29 SP TYPE: PAPFT OTHR DR: Yarelis Guardado Tissues: 1 - CX/ENDOCX FOR PAP SMEARS Procedures: PAP THIN PREP/[facility] Screening HPV DNA PROBE Comments: [id number]
== END 2022-04-01 16:01 | disposition home or self-care (01) ==
LOC: LBN 16:00
PROVIDERS: PCP Physician Assistant Medical; Visit Provider Nurse Practitioner Women's Health
DX: Z12.4 Encounter for screening for malignant neoplasm of cervix (principal); Z11.51 Encounter for screening for human papillomavirus (HPV)
CPT/HCPCS: 88142; 87624

== ENCOUNTER 2022-04-23 14:47 | Outpatient (CLI) | payer OTHER, SELFPAY ==
--- NOTE | 2022-04-23 14:30 | DI.RAD_ITS ---
Exam(s) XR SHOULDER RT COMPLETE 2+V EXAM: XR SHOULDER RT COMPLETE 2+V CLINICAL HISTORY: right shoulder pain. TECHNIQUE: 2D digital imaging was performed of the right shoulder. Two images were obtained. AP an d axillary views were obtained. COMPARISON: No exams were available for comparison FINDINGS: BONES: No acute fracture is present. No bony destructive lesion is seen. JOINTS: No dislocation present. SOFT TISSUE: Calcifications are seen adjacent to the greater tuberosity consistent with calcific tend initis. IMPRESSION: Calcific tendinitis. DATA REPOSITORY: RADIATION DOSE DELIVERED:
== END 2022-04-23 14:48 | disposition home or self-care (01) ==
LOC: DIORS 14:48
PROVIDERS: PCP Physician Assistant Medical; Referring Provider Physician Assistant Medical; Visit Provider Student in an Organized Health Care Education/Training Program
DX: M75.31 Calcific tendinitis of right shoulder (principal)
CPT/HCPCS: 73030

== ENCOUNTER → 2022-05-08 02:47 | Outpatient (CLI) | payer OTHER, SELFPAY ==
--- NOTE | 2022-05-08 15:15 | DI.MAMMO_ITS ---
Exam(s) MAMMO SCREENING EXAM: MAMMO SCREENING CLINICAL HISTORY: screening TECHNIQUE: Mammograms were interpreted according to the usual protocol including computer analysis w [employer] CAD system, tomosynthesis and C-view imaging. COMPARISON: FINDINGS: The breasts are of moderate density with fairly symmetrical distribution of fibroglandular tissue. N o dominant mass or clumped microcalcification is identified in either breast. Examination is compare d with previous examinations including December 2018. The patient has lost approximately 120 pounds si nce prior examination and the breasts are accordingly more dense on the current study, no focal kirk e identified. IMPRESSION: No specific evidence of malignancy at this time. Routine screening examinations are suggested at ye tiffany intervals due to the family history of breast carcinoma. BI-RADS Category 1 - Negative Breast Density - Category B - Scattered areas of fibroglandular density
== END ==
PROVIDERS: PCP Physician Assistant Medical; Visit Provider Nurse Practitioner Women's Health
DX: Z12.31 Encounter for screening mammogram for malignant neoplasm of breast (principal); Z80.3 Family history of malignant neoplasm of breast
CPT/HCPCS: 77063; 77067

== ENCOUNTER 2022-09-10 09:02 | Outpatient (RCR) | payer OTHER, SELFPAY ==
[2022-09-10 11:40] LABS: HCT 41.8 % (36.0-46.0); HGB 13.8 g/dL (11.2-15.7); MCH 30.4 pg (27.0-33.0); MCV 92 fL (80-95); MPV 12.1 fL (8.0-11.0); Platelet Count 239 10^3/uL (130-400); RBC 4.54 10^6/uL (3.93-5.22); RDW-SD 48.1 fL; WBC 7.86 10^3/uL (4.4-10.8)
[2022-09-10 11:58] LABS: Iron 101 ug/dL (50-170); Total Iron Binding Capacity 437 ug/dL (250-450); Transferrin Sat 23 % (15-50)
[2022-09-10 12:20] LABS: ALT 54 U/L (14-59); AST 33 U/L (15-37); Albumin 3.7 g/dL (3.4-5.0); Alkaline Phosphatase 106 U/L (46-116); Anion Gap 4.4 mmol/L (3-11); BUN 18 mg/dL (7-18); Bilirubin, Total 0.4 mg/dL (0.2-1.0); CO2 31.6 mmol/L (21.0-32.0); CREATININE 0.8 mg/dL (0.55-1.02); Calcium 8.4 mg/dL (8.5-10.1); Chloride 105 mmol/L (98-107); Estimated GFR 90.27 (mL/min/1.73m2); Ferritin 13 ng/mL (8-252); Glucose 114 mg/dL (74-106); Potassium 3.4 mmol/L (3.5-5.1); Sodium 141 mmol/L (136-145); TSH 0.33 uIU/mL (0.36-3.74); Total Protein 7.2 g/dL (6.4-8.2); Vitamin B12 1417 pg/mL (193-986)
[2022-09-10 12:21] LABS: Folate > 20.0 ng/mL (8.6-20.0)
[2022-09-10 12:22] LABS: Vitamin D 25 Total 46.5 ng/mL (30-100)
[2022-09-10 22:26] LABS: Parathyroid Hormone,Intact 82 pg/mL (19-88)
[2022-09-13 11:16] LABS: Thiamine (Vitamin B1), WB 223 nmol/L (70-180)
== END 2022-09-29 23:59 | disposition home or self-care (01) ==
LOC: INF 09:02
PROVIDERS: PCP Physician Assistant Medical; Visit Provider Nurse Practitioner Family
DX: Z98.84 Bariatric surgery status (principal); E83.10 Disorder of iron metabolism, unspecified; K91.2 Postsurgical malabsorption, not elsewhere classified
CPT/HCPCS: 80053; 82306; 85027; 82607; 82728; 82746; 83540; 83550; 83970; 84425; 84443

== ENCOUNTER 2023-05-21 12:34 | Outpatient (RCR) | payer OTHER, SELFPAY ==
[2023-05-21 13:18] LABS: FREE T4 0.86 ng/dL (0.76-1.46); TSH 3.95 uIU/mL (0.36-3.74)
[2023-05-21 21:53] LABS: Thyroglobulin Antibody <15 U/mL (<=60)
== END 2023-06-01 23:59 | disposition home or self-care (01) ==
LOC: INF 12:34
PROVIDERS: PCP Physician Assistant Medical; Visit Provider Physician Assistant Medical
DX: E89.0 Postprocedural hypothyroidism (principal); Z85.850 Personal history of malignant neoplasm of thyroid; D50.9 Iron deficiency anemia, unspecified
CPT/HCPCS: 36415; 84439; 84443; 86800

== ENCOUNTER 2023-09-19 07:52 | Outpatient (RCR) | payer OTHER, SELFPAY ==
[2023-09-19 08:25] LABS: HCT 42.6 % (36.0-46.0); HGB 13.9 g/dL (11.2-15.7); MCH 30.9 pg (27.0-33.0); MCHC 32.6 % (32.0-36.0); MCV 95 fL (80-95); MPV 11.9 fL (8.0-11.0); Platelet Count 200 10^3/uL (130-400); RDW 13.8 % (11.7-14.6); RDW-SD 48.6 fL
[2023-09-19 08:48] LABS: WBC 5.91 10^3/uL (4.4-10.8)
[2023-09-19 08:52] LABS: Ferritin 44 ng/mL (8-252); TSH 2.88 uIU/Ml (0.36-3.74)
== END 2023-09-30 23:59 | disposition home or self-care (01) ==
LOC: INF 07:52
PROVIDERS: PCP Physician Assistant Medical; Visit Provider Physician Assistant Medical
DX: Z85.850 Personal history of malignant neoplasm of thyroid (principal); D50.9 Iron deficiency anemia, unspecified
CPT/HCPCS: 36415; 85027; 82728; 84443

== ENCOUNTER 2024-01-15 07:00 | Outpatient (RCR) | payer OTHER, SELFPAY ==
[2024-01-15 08:12] LABS: Ferritin 51 ng/mL (8-252); TSH 0.08 uIU/Ml (0.36-3.74)
== END 2024-01-31 23:59 | disposition home or self-care (01) ==
LOC: INF 07:00
PROVIDERS: PCP Physician Assistant Medical; Visit Provider Physician Assistant Medical
DX: E03.9 Hypothyroidism, unspecified (principal); D50.9 Iron deficiency anemia, unspecified; R53.83 Other fatigue
CPT/HCPCS: 36415; 82728; 84443

== ENCOUNTER 2024-01-21 01:05 | Outpatient (CLI) | payer OTHER, SELFPAY ==
--- NOTE | 2024-01-21 | DI.MAMMO_ITS ---
Exam(s) MAMMO SCREENING EXAM: MAMMO SCREENING CLINICAL HISTORY: SCREENING, Z12.39 TECHNIQUE: Mammograms were interpreted according to the usual protocol including computer analysis w [employer] CAD system, tomosynthesis and C-view imaging. COMPARISON: 2016 through 2021 FINDINGS: The breasts are composed of scattered fibroglandular densities, Breast Density category B. No suspicious masses or suspicious microcalcifications are seen. No skin thickening or abnormal axillary lymph nodes are seen. There has been no significant change from prior exams. IMPRESSION: BI-RADS Category 1, Negative mammogram Yearly screening mammography is recommended. Breast Density - Category B, scattered fibroglandular densities. A negative radiographic report should not delay biopsy if a dominant or clinically suspicious mass is present. Up to ten percent of cancers are not identified on mammography. A negative report may reinforce clinical impression. Adenosis and dense breasts may obscure an underlying neoplasm. False positive reports average 6 to 10%. Patient will receive a letter notifying them of these results.
== END 2024-01-21 01:25 ==
LOC: DI 01:05
PROVIDERS: PCP Physician Assistant Medical; Visit Provider Physician Assistant Medical
DX: Z12.31 Encounter for screening mammogram for malignant neoplasm of breast (principal)
CPT/HCPCS: 77063; 77067

== ENCOUNTER 2024-02-12 02:17 | Outpatient (CLI) | payer OTHER, SELFPAY ==
--- NOTE | 2024-02-12 | DI.DEXA_ITS ---
Exam(s) XR DEXA BONE DENSITY W/WO FROYLAN EXAM: XR DEXA BONE DENSITY W/WO FROYLAN CLINICAL HISTORY: BARIATRIC SURGERY STATUS Z98.84 TECHNIQUE: COMPARISON: CR XR lumbar spine complete from 08/18/2018 FINDINGS: Lateral Spine Image: Unremarkable. No compression deformities identified. Left hip: Total T-Score: -0.3 Total Z-Score: 0.2 T- and Z-scores: Within normal limits. Lumbar Spine: Total T-Score: -0.4 Total Z-Score: 0.4 T- and Z-scores: Within normal limits. IMPRESSION: No evidence of osteoporosis.
== END 2024-02-12 02:37 ==
LOC: DI 02:17
PROVIDERS: PCP Physician Assistant Medical; Visit Provider Physician Assistant Medical
DX: Z98.84 Bariatric surgery status (principal); Z13.820 Encounter for screening for osteoporosis
CPT/HCPCS: 77080